=== PATIENT | female | born 1955 | race Caucasian/White ===

== ENCOUNTER 2016-07-25 15:12 | Observation (INO) | payer OTHER, MEDICAID ==
[~2016-07-25] VITALS: Ht 170.2 cm; Wt 63.5 kg
[~2016-07-25 15:12] MED LIST: ATEN50TA OR; CARI-277 OR; DOXE150C7 OR; LORA1TAB12 OR; OMEPRAZOLE; PERCOT GT; RISP0.5T45 OR; TRIA50TA2 OR
[2016-07-25 16:06] LABS: Basophils # (auto) 0 uL; Basophils % (auto) 0.8 % (0.0-2.0); DEFINITIVE VIEW TRANSMISSION; Eosinophils # (auto) 0 uL; Eosinophils % (auto) 0.8 % (0.0-7.0); Hematocrit 39.8 % (36.0-46.0); Hemoglobin 13.3 g/dL (12.2-16.2); Lymphocytes # (auto) 0.7 uL; Lymphocytes % (auto) 26.1 % (10.0-50.0); Mean Corpuscular Hgb Conc. 33.5 g/dL (32.0-36.0); Mean Corpuscular Volume 104.6 fL (80.0-100.0); Mean Platelet Volume 8.4 fL (7.4-10.4); Monocytes # (auto) 0.2 uL; Monocytes % (auto) 9.5 % (0.0-12.0); Neutrophils # (auto) 1.6 uL; Neutrophils % (auto) 62.8 % (37.0-80.0); Platelet Count (auto) 52 10^3/uL (140-450); Red Cell Distribution Width 15.4 % (11.6-16.0); White Blood Cell 2.6 10^3/uL (4.4-10.8)
[2016-07-25 16:19] LABS: Albumin 2.7 g/dL (3.4-5.0); Anion Gap 9 (5-15); Aspartate Aminotransferase 92 U/L (15-37); BUN/Creatinine Ratio 14.1; Blood Urea Nitrogen 13 mg/dL (7-18); Calcium 8.3 mg/dL (8.5-10.1); Carbon Dioxide 25 mmol/L (21-32); Chloride 103 mmol/L (98-107); GFR African American 80 mL/min; GFR Non-African American 66 mL/min; Glucose 112 mg/dL (74-106); Potassium 4.1 mmol/L (3.5-5.1); Sodium 137 mmol/L (136-145)
[2016-07-25 16:43] LABS: Alkaline Phosphatase 85 U/L (45-117); Bilirubin, Total 1.6 mg/dL (0.2-1.0); Total Protein 6.4 g/dL (6.4-8.2)
[2016-07-25] MEDS ORDERED: GABA300C8 PO (17:30)
[2016-07-25] MEDS ORDERED: CARI350T21 PO (17:30)
[2016-07-25] MEDS ORDERED: LACT10SO PO (17:30)
[2016-07-25] MEDS ORDERED: SPIR25TA89 PO (17:30)
[2016-07-25] MEDS ORDERED: PROM25TA5 PO (17:30)
[2016-07-25 20:21] VITALS: BP 141/67
== END 2016-07-25 21:06 | disposition home or self-care (01) | DRG 947 ==
LOC: EDUNIT# 15:12 → ER 15:19 → OVERFLOW 18:41 → ER 20:39
PROVIDERS: ADMIT Emergency Medicine; ATTEND Emergency Medicine
DX: R41.82 Altered mental status, unspecified (principal); G93.41 Metabolic encephalopathy; R40.0 Somnolence; F41.9 Anxiety disorder, unspecified; F31.9 Bipolar disorder, unspecified; K74.60 Unspecified cirrhosis of liver; K21.9 Gastro-esophageal reflux disease without esophagitis; I10 Essential (primary) hypertension
CPT/HCPCS: 36415; 70450; 71010; 80053; 82140; 84484; 85025; 93005; 99285; G0378

== ENCOUNTER 2016-08-07 14:02 | Observation (INO) | payer MEDICARE, OTHER ==
[~2016-08-07] VITALS: Ht 167.6 cm; Wt 72.6 kg
[~2016-08-07 14:02] MED LIST changes: -ATEN50TA OR; -CARI-277 OR; +CARI350T21 PO; +GABA300C8 PO; +LACT10SO PO; +PROM25TA5 PO; +SPIR25TA89 PO
[2016-08-07 15:26] LABS: Basophils # (auto) 0 uL; Basophils % (auto) 0.2 % (0.0-2.0); DEFINITIVE VIEW TRANSMISSION; Eosinophils # (auto) 0 uL; Eosinophils % (auto) 0.4 % (0.0-7.0); Hematocrit 37.6 % (36.0-46.0); Hemoglobin 12.8 g/dL (12.2-16.2); Lymphocytes # (auto) 0.5 uL; Lymphocytes % (auto) 16.9 % (10.0-50.0); Mean Corpuscular Hemoglobin 35.8 pg (28.0-32.0); Mean Corpuscular Hgb Conc. 34.1 g/dL (32.0-36.0); Mean Platelet Volume 7.6 fL (7.4-10.4); Monocytes # (auto) 0.3 uL; Monocytes % (auto) 9.9 % (0.0-12.0); Neutrophils # (auto) 2.3 uL; Neutrophils % (auto) 72.6 % (37.0-80.0); Red Cell Distribution Width 16.5 % (11.6-16.0); White Blood Cell 3.2 10^3/uL (4.4-10.8)
[2016-08-07 15:28] LABS: Alkaline Phosphatase 127 U/L (45-117); Anion Gap 11 (5-15); Aspartate Aminotransferase 83 U/L (15-37); BUN/Creatinine Ratio 13.4; Blood Urea Nitrogen 11 mg/dL (7-18); Carbon Dioxide 26 mmol/L (21-32); Chloride 103 mmol/L (98-107); GFR African American 91 mL/min; GFR Non-African American 76 mL/min; Glucose 167 mg/dL (74-106); Magnesium 2.1 mg/dL (1.6-2.6); Platelet Count (auto) 64 10^3/uL (140-450); Potassium 4.1 mmol/L (3.5-5.1); Sodium 140 mmol/L (136-145); Total Protein 6.8 g/dL (6.4-8.2)
[2016-08-07 15:55] LABS: Macrocytosis Slight; Platelet Estimate Decreased
[2016-08-07 17:50] VITALS: BP 149/82
== END 2016-08-07 18:17 | disposition home or self-care (01) | DRG 605 ==
LOC: EDBD 14:02 → ER 14:07 → EDUNIT# 16:29 → OVERFLOW 16:29 → ER 18:17
PROVIDERS: ADMIT Emergency Medicine; ATTEND Emergency Medicine
DX: S01.91XA Laceration without foreign body of unspecified part of head, initial encounter (principal); W19.XXXA Unspecified fall, initial encounter; Y93.89 Activity, other specified; Y92.89 Other specified places as the place of occurrence of the external cause; Y99.8 Other external cause status; J45.909 Unspecified asthma, uncomplicated; I10 Essential (primary) hypertension; K76.9 Liver disease, unspecified; T14.8 Other injury of unspecified body region
CPT/HCPCS: 36415; 70450; 72125; 80053; 82140; 83735; 84484; 85025; 93005; 99285; G0378

== ENCOUNTER 2016-08-29 06:42 | Observation (INO) | payer OTHER ==
[~2016-08-29] VITALS: Ht 170.2 cm; Wt 63.5 kg
[2016-08-29 08:56] LABS: Basophils # (auto) 0 uL; Basophils % (auto) 0.6 % (0.0-2.0); DEFINITIVE VIEW TRANSMISSION; Eosinophils # (auto) 0 uL; Eosinophils % (auto) 0.3 % (0.0-7.0); Hematocrit 36.3 % (36.0-46.0); Hemoglobin 12.2 g/dL (12.2-16.2); Lymphocytes % (auto) 13.1 % (10.0-50.0); Mean Corpuscular Hemoglobin 35.7 pg (28.0-32.0); Mean Corpuscular Hgb Conc. 33.6 g/dL (32.0-36.0); Mean Corpuscular Volume 106.3 fL (80.0-100.0); Mean Platelet Volume 7.2 fL (7.4-10.4); Monocytes # (auto) 0.8 uL; Monocytes % (auto) 9.5 % (0.0-12.0); Neutrophils % (auto) 76.5 % (37.0-80.0); Platelet Count (auto) 92 10^3/uL (140-450); Red Cell Distribution Width 15.8 % (11.6-16.0); White Blood Cell 7.9 10^3/uL (4.4-10.8)
[2016-08-29 09:17] LABS: Albumin 2.3 g/dL (3.4-5.0); BUN/Creatinine Ratio 24.3; Bilirubin, Total 2.3 mg/dL (0.2-1.0); Calcium 8.9 mg/dL (8.5-10.1); Potassium 4.4 mmol/L (3.5-5.1); Total Protein 5.9 g/dL (6.4-8.2)
[2016-08-29 09:58] LABS: Urine Bilirubin Negative (Negative); Urine Blood Negative /uL (Negative); Urine Color Yellow (Yellow); Urine Glucose Normal (Normal); Urine Ketone Negative (Negative); Urine Nitrite Negative (Negative); Urine RBC 2 /hpf (0 - 4); Urine Squamous Epithelial Cell FEW /hpf (<5)
[2016-08-29] MEDS ORDERED: SODIUM CHLORIDE 0.9% 1,000 ML IVB ONE (12:38)
[2016-08-29] MEDS ORDERED: SILVER SULFADIAZINE 1 % TOPICAL CREAM 50GM TOP ONE (12:45)
[2016-08-29 13:06] LABS: Magnesium 2.1 mg/dL (1.6-2.6)
[2016-08-29 13:08] LABS: Partial Thromboplastin Time 27.7 sec (22.64-33.71)
[2016-08-29 13:10] LABS: INR 1.23 (0.9-1.15); Prothrombin Time 13.3 sec (9.37-12.3)
[2016-08-29 13:45] LABS: Lactic Acid w/Reflex 2.3 mmol/L (0.4-2.0)
[2016-08-29 13:46] LABS: REFLEX LACTIC ACID YES OR NO YES
[2016-08-29] MEDS ORDERED: cefTRIAXone 1GM/50ML D5W 50 ML IV ONE (15:45)
[2016-08-29 16:28] VITALS: BP 142/75
== END 2016-08-29 18:44 | disposition home or self-care (01) | DRG 884 ==
LOC: EDUNIT# 06:47 → ER 06:47 → OVERFLOW 12:42 → ER 18:44
PROVIDERS: ADMIT Emergency Medicine; ATTEND Emergency Medicine
DX: R40.4 Transient alteration of awareness (principal); L89.153 Pressure ulcer of sacral region, stage 3; K74.60 Unspecified cirrhosis of liver; S91.302A Unspecified open wound, left foot, initial encounter; S91.301A Unspecified open wound, right foot, initial encounter; T22.251A Burn of second degree of right shoulder, initial encounter; I10 Essential (primary) hypertension; W19.XXXA Unspecified fall, initial encounter; Y93.89 Activity, other specified; X08.8XXA Exposure to other specified smoke, fire and flames, initial encounter; Y92.89 Other specified places as the place of occurrence of the external cause; Y99.8 Other external cause status
CPT/HCPCS: 36415; 70450; 71010; 80053; 80320; 81001; 82140; 83605; 83735; 84484; 85025; 85610; 85730; 87040; 93005; 96361; 96365; 99285; A6209; G0378; G0434; J0696; J7030